=== PATIENT | female | born 1935 | race Two or more races ===

== ENCOUNTER 2016-12-05 00:08 | Emergency (ER) | payer OTHER ==
[~2016-12-05] VITALS: Ht 167.6 cm; Wt 81.6 kg
[2016-12-05 01:06] LABS: Basophils # (auto) 0 uL; Basophils % (auto) 0.3 % (0.0-2.0); Eosinophils # (auto) 0 uL; Hematocrit 31.5 % (36.0-46.0); Hemoglobin 10.5 g/dL (12.2-16.2); Lymphocytes % (auto) 18.7 % (10.0-50.0); Mean Corpuscular Hemoglobin 30.1 pg (28.0-32.0); Mean Corpuscular Hgb Conc. 33.3 g/dL (32.0-36.0); Mean Corpuscular Volume 90.5 fL (80.0-100.0); Mean Platelet Volume 7.1 fL (7.4-10.4); Monocytes # (auto) 0.9 uL; Monocytes % (auto) 8.4 % (0.0-12.0); Neutrophils # (auto) 7.7 uL; Neutrophils % (auto) 72.6 % (37.0-80.0); Platelet Count (auto) 508 10^3/uL (140-450); Red Cell Distribution Width 15.4 % (11.6-16.0); White Blood Cell 10.6 10^3/uL (4.4-10.8)
[2016-12-05 01:21] LABS: INR 1.06 (0.9-1.15); Partial Thromboplastin Time 23.3 sec (22.64-33.71); Prothrombin Time 11.6 sec (9.37-12.3)
[2016-12-05 01:48] LABS: Albumin 2.2 g/dL (3.4-5.0); BUN/Creatinine Ratio 24.5; Potassium 3.5 mmol/L (3.5-5.1)
[2016-12-05 01:50] LABS: Bilirubin, Total 0.3 mg/dL (0.2-1.0); Total Protein 6.4 g/dL (6.4-8.2)
[2016-12-05] MEDS ORDERED: cefTRIAXone 1GM/50ML D5W 50 ML IV ONE (02:45)
[2016-12-05] MEDS ORDERED: SODIUM CHLORIDE 0.9% 1,000 ML IV ONE (02:45)
[2016-12-05 03:34] LABS: B-Type Natriuretic Peptide 124.31 pg/mL (0-100); Temperature: 22.9 C (20.0-25.0)
[2016-12-05 06:23] LABS: Urine Bilirubin Negative (Negative); Urine Color Yellow (Yellow); Urine Glucose Normal (Normal); Urine Mucus FEW (None Seen); Urine Nitrite Negative (Negative); Urine RBC 51 /hpf (0 - 4); Urine Squamous Epithelial Cell FEW /hpf (<5); Urine Urobilinogen Normal (Negative); Urine pH 5.5 (5.0-8.0)
[2016-12-05 06:28] LABS: Urine Blood 1+ /uL (Negative); Urine Ketone 1+ (Negative)
[2016-12-05 06:46] VITALS: BP 106/50
== END 2016-12-05 06:55 | disposition short-term general hospital (02) ==
LOC: EDBD 00:08 → ER 00:16
DX: I63.9 Cerebral infarction, unspecified (principal); E86.0 Dehydration; E43 Unspecified severe protein-calorie malnutrition; Z68.29 Body mass index [BMI] 29.0-29.9, adult; F03.90 Unspecified dementia, unspecified severity, without behavioral disturbance, psychotic disturbance, mood disturbance, and anxiety; Z87.440 Personal history of urinary (tract) infections
CPT/HCPCS: 36415; 70450; 71010; 80053; 81001; 83880; 84484; 85025; 85379; 85610; 85730; 87040; 93005; 96365; 96366; 99285; J0696; J7030